=== PATIENT | female | born 1980 | race Caucasian/White ===

== ENCOUNTER → 2016-07-14 | Day surgery (SDC) | payer OTHER ==
[~2016-07-14] VITALS: Ht 180.3 cm; Wt 76.3 kg
[~2016-07-14] MED LIST: ACETAMINOPHEN 1000 MG/100 ML VIAL IV ONE; BUPIVACAINE/EPINEPHRINE 0.5% PF 30 ML VIAL ONE; CHLORHEXIDINE GLUCONATE 2 % 1 PACK (2 CLOTHS) TOPICAL PRN; DO NOT ADM ANY ANTICOAGULANT DRUGS PRN; FAMOTIDINE 20 MG/2 ML VIAL ONE; INSULIN HUMAN REGULAR 1,000 UNITS/10 ML VIAL SQ PRN; KETAMINE HCL 500 MG/5 ML VIAL ONE; KETOROLAC TROMETHAMINE 30 MG/ML (IVP) VIAL IV PUSH ONE; KETOROLAC TROMETHAMINE 30 MG/ML (IVP) VIAL IV PUSH PRN; KETOROLAC TROMETHAMINE 30 MG/ML (IVP) VIAL ONE; LACTATED RINGER'S 1000 ML INJ 1,000 ML IV ONE; LACTATED RINGER'S 1000 ML IV PRN; LIDOCAINE 0.5%/EPINEPHrine 1:200,000 SOLN 50 ML VIAL ONE; METOPROLOL TARTRATE 25 MG TAB PO PRN; MIDAZOLAM HCL 2 MG/2 ML VIAL ONE; MORPHINE SULFATE 4 MG/ML INJ IV PRN; ONDANSETRON HCL 4 MG/2 ML VIAL IV PUSH PRN; POVIDONE IODINE 5% (ANTISEPSIS KIT) 4 APPLICATIONS EACH NARE PRN; PREN0.01 PO; PROPOFOL 200 MG/20 ML AMP IV ONE; SILVER SULFADIAZINE/LIDOCAINE CREAM 60 GM JAR RECTAL ONE; SODIUM CHLORID 0.9% 500 ML IV PRN; oxyCODONE/ACETAMINOPHEN 10 MG/325 MG TAB PO PRN
[2016-07-14 09:37] VITALS: BP 116/77; PULSE 68; RESP 18; TEMP 98.3; O2SAT 100
[2016-07-14 10:08] LABS: AUTOMATED NEUTROPHIL # 3.9 TH/MM3 (1.8-7.7); BASOPHIL % 0.6 % (0.0-2.0); EOSINOPHIL # 0.1 TH/MM3 (0-0.4); EOSINOPHIL % 1.9 % (0.0-4.0); HEMATOCRIT 36.9 % (35.0-46.0); HEMO FLAGS DIFF FINAL; LYMPH % 21.8 % (9.0-44.0); LYMPHOCYTE # 1.2 TH/MM3 (1.0-4.8); MEAN CELL VOLUME 85.3 FL (80.0-100.0); MEAN CORPUSCULAR HEMOGLOBIN 28.3 PG (27.0-34.0); MEAN CORPUSCULAR HGB CONC 33.2 % (32.0-36.0); MONO % 7.9 % (0.0-8.0); NEUT % 67.8 % (16.0-70.0); PLATELET COUNT 154 TH/MM3 (150-450); RED BLOOD COUNT 4.33 MIL/MM3 (4.00-5.30); RED CELL DISTRIBUTION WIDTH 15.3 % (11.6-17.2); WHITE BLOOD COUNT 5.7 TH/MM3 (4.0-11.0)
--- NOTE | 2016-07-14 10:29 | PD.HP.UP ---
H&P Update Note The Pre-Admit History and Physical Examination regarding the above named patient was reviewed (including, but not limited to, vital signs, heart, lungs, co-morbid conditions), and upon re-examination it is noted that: the patient's condition has not significantly changed since the last examination. Mohaumd Caputo MD Jul 14, 2016 10:29
[2016-07-14 13:52] VITALS: PULSE 64; RESP 16; TEMP 97.5; O2SAT 100
[2016-07-14] MEDS: MORPHINE SULFATE 4 MG/ML INJ IV PUSH PRN ×2 (14:30→15:30)
--- NOTE | 2016-07-14 14:35 | EKG ---
Date Performed: 07/14/2016 Time Performed: 09:54:47 PTAGE: 35 years EKG: Sinus rhythm WITH SHORT WA INTERVAL BORDERLINE ECG PREVIOUS TRACING : 04/12/2014 22.23 Compared to prior tracing no significant change DOCTOR: Cam Islas Interpretating Date/Time 07/14/2016 14:33:41
[2016-07-14 15:02] VITALS: BP 96/58
--- NOTE | 2016-07-29 07:12 | MP ---
cc: FELICIANO SWANSON M.D. DATE OF SURGERY 07/14/2016 PREOPERATIVE DIAGNOSIS Symptomatic hemorrhoids PROCEDURE Exam under anesthesia with anorectoplasty POSTOPERATIVE DIAGNOSIS Symptomatic hemorrhoids SURGEON Dr. Swanson PROCEDURE The patient was placed in the prone jackknife position. After adequate anesthesia sedation, her buttocks were taped apart, prepped with Betadine solution and draped in usual sterile fashion. Local anesthesia was obtained by injection of 1% Xylocaine with 0.5% Marcaine with epinephrine. The anal canal was gently dilated and a half-prieto retractor inserted. Examination revealed rather large irritated hemorrhoids in the left lateral and right posterior position. The right anterior quadrant was a little bit smaller. Rectal vault was pretty unremarkable. Initially, an elliptical incision was made over the large hemorrhoidal mass in the left lateral quadrant taking the tissue off the internal, external sphincter. The pedicle was narrowed with electrocautery and divided. The mucosal defect and anoderm were then closed using a running chromic catgut suture with several interrupted [id number] sutures for hemostasis. A similar dissection was then performed in the right posterior position and a smaller dissection in the anterior position, leaving the anterior midline opened. All suture lines were hemostatic. The lumen size of the anal canal was more than adequate. A small Surgicel dressing placed in the anal canal and a large fluff dressing placed externally. The patient tolerated the procedure quite well and was brought to the recovery room in stable condition. MD MICHAEL Bertrand/WINNIE /10:01 AM /7:12 AM
== END | disposition home or self-care (01) ==
LOC: HSDC 08:45
PROVIDERS: ATTEND Colon & Rectal Surgery
DX: K64.8 Other hemorrhoids (principal); J44.9 Chronic obstructive pulmonary disease, unspecified; Z01.810 Encounter for preprocedural cardiovascular examination
CPT/HCPCS: 00902; 46255; 85025; 88304; 93005; J0131; J1885; J2250; J2270; J2405; J3010; J7120